=== PATIENT | female | born 1965 | race Two or more races ===

== ENCOUNTER → 2024-11-23 | Outpatient (CLI) | payer BC, SELFPAY ==
--- NOTE | 2024-11-23 14:20 | XR_ITS ---
EXAMINATION: Cervical spine, 5 views Technique: Cervical spine AP, AP odontoid, lateral, bilateral obliques, 5 views Exam date and time: November 23, 2024 1439 hours INDICATIONS: Neck pain months. FINDINGS: Adequate alignment cervical vertebral bodies No cervical fracture Intact odontoid Moderate to advanced degenerative disc disease C4-C5, C5-C6, C6-C7 with moderate bilateral neural foraminal stenosis at these levels IMPRESSION: Moderate to advanced degenerative disc disease C4-C5, C5-C6, C6-C7
== END | disposition home or self-care (01) ==
PROVIDERS: PCP Family Medicine; Referring Provider Family Medicine; Visit Provider Family Medicine
DX: M50.321 Other cervical disc degeneration at C4-C5 level (principal)
CPT/HCPCS: 72050

== ENCOUNTER 2025-02-11 23:16 | Emergency (ER) | payer BC, SELFPAY ==
[2025-02-11 23:17] VITALS: BMI 28.5
[2025-02-11 23:30] VITALS: BP 171/98; PULSE 89; RESP 20; TEMP 36.6; O2SAT 96
--- NOTE | 2025-02-11 23:43 | PD.EDRME ---
Rapid Medical Screening Exam RME Arrival date/time: 02/11/25 23:16 This is a case of 59-year-old female who came into the emergency room due to neck pain and stiffness with elevated blood pressure for 3 days persistence of the symptoms this patient decided to sought consult here in the emergency room patient also have headache and dizziness Chief Complaint: Neck Pain/Injury Time Seen by Provider: 02/12/25 00:08 Vital signs: Vital Signs Temperature 97.8 F 02/11/25 23:30 Pulse Rate 89 02/11/25 23:30 Respiratory Rate 20 02/11/25 23:30 Blood Pressure 171/98 H 02/11/25 23:30 Pulse Oximetry (%) 96 02/11/25 23:30 Oxygen Delivery Method Room Air 02/11/25 23:30
[2025-02-12 00:13] VITALS: BP 192/111; PULSE 81; RESP 18; O2SAT 97
--- NOTE | 2025-02-12 00:15 | EDNOTE_ITS ---
ED Neck Injury Pain RME/HPI General Chief Complaint: Neck Pain/Injury Stated Complaint: BP IS HIGH, NECK PAIN AND STIFFNESS Time Seen by Provider: 02/12/25 00:08 Arrival date/time: 02/11/25 23:16 RME / HPI RME / HPI Narrative: 02/11/25 23:16 This is a case of 59-year-old female who came into the emergency room due to neck pain and stiffness with elevated blood pressure for 3 days persistence of the symptoms this patient decided to sought consult here in the emergency room patient also have headache and dizziness DR. TREVIÑO MAIN ED EVALUATION: 59 y/o female with Hx of HTN presents to ED c/o right upper back stiffness and pain that radiates up the right side of the neck s/p waking up Thursday morning. Denies any recent trauma or injury. Patient is currently wearing a Salonpas patch for pain with minor relief, and has also tried Tramadol and IBU at home. In a addition, patient also reports elevated blood pressure. No other concerns or complaints expressed at this time. Related Data Home Medications ?Medication ?Instructions ?Recorded ?Confirmed metoprolol succinate 50 mg 50 mg PO QDAY 01/21/2108/20 tablet,extended release 24 hr Previous Rx's ?Medication ?Instructions ?Recorded ibuprofen 800 mg tablet 800 mg PO TID PRN pain #30 t abs 07/10/21 Allergies Allergy/AdvReac Type Severity Reaction Status Date / Time No Known Allergies Allergy Verified 02/11/25 23:16 Review of Systems Review of Systems Systems Reviewed: All systems reviewed, normal except as documented Past Medical History Past Medical History CARDIAC: Positive Hypercholesterolemia and Hypertension RESPIRATORY: Positive Asthma (20 yrs ago) REPRODUCTIVE: Positive Previous Pregnancies MUSCULOSKELETAL: Positive Musculoskeletal Disorders and Arthritis (hands) OTHER HISTORY: Positive Falls Family History FAMILY HISTORY: Positive Family Cardiac Disorders (mother- heart attack; sister- had heart surgery) Surgical History SURGICAL: Positive Section ED Exam Narrative Physical exam: Patient has tenderness to palpation over the right sternocleidomastoid musculature and trapezius musculature. No midline tenderness. Nontender to head compression. Heart regular rate and rhythm. Lungs clear to auscultation equal bilaterally. Abdomen soft bowel sounds present's and nontender. Neurologic exam no focal motor or sensory deficits. Nerves II through XII grossly intact Course Quality Measures none Orders Category Date Time Status Dexamethasone Inj [Decadron Inj] 10 mg Med 02/12/25 00:17 Discontinued Sodium Chloride 0.9% [Ns] 100 ml IV X1 Ketorolac Inj [Toradol Inj] Med 02/12/25 00:17 Discontinued 30 mg IVP X1 ONE hydrALAZINE INJ [Apresoline Inj] Med 02/12/25 00:17 Discontinued 10 mg IVP X1 ONE Vital Signs Vital signs: Vital Signs Temperature 97.8 F 02/11/25 23:30 Pulse Rate 89 02/11/25 23:30 Respiratory Rate 20 02/11/25 23:30 Blood Pressure 171/98 H 02/11/25 23:30 Pulse Oximetry (%) 96 02/11/25 23:30 Oxygen Delivery Method Room Air 02/11/25 23:30 Neck Pain MDM Narrative MDM Narrative:: Scribe Attestation: Ro Darden, narendra scribing for and in the presence of Dr. Treviño. Provider Notation: Although this document has been carefully reviewed, there may still be some phonetic and other typographical errors. These errors are purely grammatical due to imperfections in the software program and should not be construed in any way to? compromise the substance of the patient's medical care during this visit. Patient woke up with this condition 3 days ago. Patient has torticollis. There was no trauma. Patient received Decadron 10 mg IV and Toradol 30 mg IV. She is to take 800 mg of ibuprofen every 8 hours as needed at home. She can also take Tylenol 650 mg every 4 hours as needed for pain. Apply warm to painful areas. Follow-up with her doctor. Return to ER as needed or if condition worsens. Patient's blood pressure was elevated here in the emergency room and 193/111 so she received hydralazine 10 mg IV which helped decrease her blood pressure to 178/89. Patient does have a history of hypertension and has medication at home for the hypertension. Patient data External records reviewed:: [facility] previous records (Reviewed prior ED records from 09/04/21. Patient was seen for Acute alteration in mental status.) Clinical information provided by:: patient Social determinants that could affect healthcare access:: none Patient has the following chronic illnesses:: Hypercholesterolemia, Hypertension, Asthma, Arthritis How is presenting disease/condition affected by chronic disease/condition?: exacerbated by Evaluation data The following diagnostics were reviewed and interpreted by me:: other (specify) (N/A) Lab and/or radiology exams considered but not ordered:: None Interpretation Summary: N/A Medications / Prescriptions Medications or Prescriptions considered but not ordered:: None Medication administrations:: Medication Administration History Discontinued Medications Hydralazine HCl (Hydralazine Inj 20 Mg/Ml Vial) 10 mg IVP X1 ONE Stop: 02/12/25 00:18 Last Admin: 02/12/25 00:46 Dose: 10 mg Documented By: AYANNA Dexamethasone Sodium Phosphate (10 mg/ Sodium Chloride) 101 mls @ 101 mls/hr IV X1 ONE Stop: 02/12/25 00:18 Last Admin: 02/12/25 00:47 Dose: 101 mls/hr Documented By: AYANNA Ketorolac Tromethamine (Ketorolac Inj 30 Mg/Ml Vial) 30 mg IVP X1 ONE Stop: 02/12/25 00:18 Last Admin: 02/12/25 00:47 Dose: 30 mg Documented By: AYANNA See above if any Consultations Consultation(s) initiated? (list below): No Diagnosis Neck Differential Diagnosis: disc disorder of cervical region, closed subluxation of cervical spine, cervical radiculopathy, torticollis, cervical spondylosis and strain of neck muscle Most likely diagnosis given after review of the tests above:: None Admission Indicated Admission indicated?: not indicated Explain why admission is indicated or not indicated:: Patient does not meet admission criteria. Admission Request Was there a request for admission?: No Disposition Plan Disposition Plan: Discharge Discharge Attestation Discharge Attestation: The patient and all family members were given an opportunity to ask questions and understood the discharge instructions. Discharge instructions specifically effects, indications for sooner follow up or return to the emergency department, and the expected course of current diagnosis. Patient condition: Stable Discharge Plan Plan Patient Disposition: HOME (Self Care) Prescriptions/Referrals Prescriptions/Med Rec: No Action metoprolol succinate 50 mg tablet extended release 24 hr 50 mg PO QDAY Patient Comments: TAKE 1 TABLET BY MOUTH EVERY DAY ibuprofen 800 mg tablet 800 mg PO TID PRN (Reason: pain) Qty: 30 0RF Rx Instructions: arthritis joint pain Referrals: Rahul Wade MD [Primary Care Provider] - In 1 week Problem List Clinical Impression: Torticollis Patient/Caregiver Discharge Instructions Education Materials: Torticollis (Wry Neck) Additional Instructions: Take 800 mg of ibuprofen every 8 hours as needed for pain. Take 650 mg of Tylenol every 4 hours as needed for pain. Apply warm to the painful areas. You may continue to use [id number] pain patches. Follow-up with your doctor. Return to ER as needed or if condition worsens. Print Language: Citizen Of [place] Stand Alone Forms: Johanna Award Info., Patient Portal Info Letter
[2025-02-12 00:46] VITALS: BP 192/111; PULSE 73
[2025-02-12] MEDS: hydrALAZINE INJ 20 MG/ML VIAL 10 MG IVP (00:46)
[2025-02-12] MEDS: KETOROLAC INJ 30 MG/ML VIAL IVP (00:47)
[2025-02-12] MEDS: DEXAMETHASONE INJ 10 MG in SODIUM CHLORIDE 0.9% 100 ML 101 MG IV (00:47)
[2025-02-12 01:04] VITALS: BP 142/86
[2025-02-12 01:14] VITALS: BP 142/86; PULSE 80; RESP 13; O2SAT 98
== END 2025-02-12 01:49 | disposition home or self-care (01) ==
PROVIDERS: Emergency Provider Emergency Medicine; PCP Family Medicine
DX: M43.6 Torticollis (principal); I10 Essential (primary) hypertension
CPT/HCPCS: 80053; 81001; 85025; 96365; 96375; 99283; J0360; J1100; J1885; J7050